=== PATIENT | male | born 2000 | race Caucasian/White ===

== ENCOUNTER 2020-01-23 21:43 | Emergency (ER) | payer OTHER, SELFPAY ==
[2020-01-23 21:45] VITALS: BP 147/104; PULSE 105; RESP 17; TEMP 36.9; O2SAT 100; BMI 21.2
--- NOTE | 2020-01-24 00:06 | NURSING ---
2230 PT LEFT ROOM WITH MOTHER. MOTHER CALLED BACK IN TO SAY PATIENT WAS TIRED OF WAITING. SHE STATES SHE REALIZED WE WERE VERY BUSY BUT SHE WAS UNABLE TO KEEP HIM IN THE ROOM ANY LONGER. SHE STATES PATIENT WAS HAVING PARANOID THOUGHTS BUT NOT SUICIDAL OR HOMICIDAL THOUGHTS. MOTHER WAS GIVEN THE COUNSELING CENTERS NUMBER BY THIS RN AND ENCOURAGED HER TO CALL AND SPEAK TO THEM TONIGHT.
== END 2020-01-23 22:30 | disposition left against medical advice (07) ==
LOC: ED 22:33
PROVIDERS: Emergency Provider Emergency Medicine; PCP Pediatrics
DX: Z53.21 Procedure and treatment not carried out due to patient leaving prior to being seen by health care provider (principal)
CPT/HCPCS: 99281